=== PATIENT | male | born 1995 | race Hispanic/Latino ===

== ENCOUNTER 2023-10-07 00:53 | Emergency (ER) | payer SELFPAY ==
--- NOTE | ~2023-10-07 | XR_ITS ---
Lumbosacral Spine: AP and lateral views Clinical History: Pain Findings: The normal lordotic curve is maintained. The vertebral bodies and posterior elements are i ntact. The intervertebral disc spaces are preserved. The sacroiliac joints are normally outlined. Impression: No significant abnormality. Reviewed, dictated and finalized at [facility]. CE INVESTIGATOR Impression: No significant abnormality.
[2023-10-07 00:59] VITALS: BP 148/91; PULSE 88; RESP 14; TEMP 36.4; O2SAT 99
[2023-10-07] MEDS: CYCLOBENZAPRINE HCL 10 MG TABLET PO (02:57)
--- NOTE | 2023-10-07 03:21 | ED.GENADULT ---
HPI - General Adult General Chief complaint: Extremity Injury, Lower Stated complaint: left leg pain Time Seen by Provider: 10/07/23 02:30 History of Present Illness HPI narrative: Patient is a 28-year-old gentleman who presents emergency department with chief complaint of left back pain and pain radiating down the left leg. The patient states that several days ago he started having pain lumbar region that radiates down the left gluteal area down the back of his leg to his foot the patient denies footdrop denies saddle anesthesia denies bowel or bladder dysfunction. Related Data Allergies Allergy/AdvReac Type Severity Reaction Status Date / Time ibuprofen AdvReac Unknown Itching Verified 10/07/23 01:46 Review of Systems Review of Systems: A 10 system review of systems was completed on the patient and is negative except for what is stated in the HPI. Nursing and ancillary documentation was reviewed. Exam Narrative: GENERAL: Well-appearing, well-nourished, and in no acute distress. HEAD: Normocephalic, atraumatic. EYES: PERRLA and EOMI. ENT: Nares clear, no rhinorrhea or epistaxis. Mucous membranes moist. NECK: Supple. CHEST: Clear to auscultation. No respiratory distress. HEART: Regular rate and rhythm. No murmur heard. Normal peripheral pulses. ABDOMEN: Soft, nontender, nondistended, normal active bowel sounds. EXTREMITIES: Normal range of motion. No edema. Tenderness to palpation of the left SI joint and the left sciatic region SKIN: Warm, dry, no rash. NEURO: No focal deficits. Alert and oriented x3. PSYCH: Normal mood and affect. Course Vital Signs Vital signs: Vital Signs Temperature 36.4 C 10/07/23 00:59 Pulse Rate 88 10/07/23 00:59 Respiratory Rate 14 10/07/23 00:59 Blood Pressure 148/91 H 10/07/23 00:59 Pulse Oximetry 99 10/07/23 00:59 Oxygen Delivery Room Air 10/07/23 00:59 Temperature 36.4 C 10/07/23 00:59 Pulse Rate 88 10/07/23 00:59 Respiratory Rate 14 10/07/23 00:59 Blood Pressure 148/91 H 10/07/23 00:59 Pulse Oximetry 99 10/07/23 00:59 Oxygen Delivery Room Air 10/07/23 00:59 Medical Decision Making MDM Narrative Medical decision making narrative: Differential diagnosis includes sciatica, lumbar fracture, lumbar radiculopathy Plain film x-rays were obtained of the lumbar spine showed no evidence of fracture Vital Signs Vital Signs: Vital Signs Temperature 36.4 C 10/07/23 00:59 Pulse Rate 88 10/07/23 00:59 Respiratory Rate 14 10/07/23 00:59 Blood Pressure 148/91 H 10/07/23 00:59 Pulse Oximetry 99 10/07/23 00:59 Oxygen Delivery Room Air 10/07/23 00:59 Temperature 36.4 C 10/07/23 00:59 Pulse Rate 88 10/07/23 00:59 Respiratory Rate 14 10/07/23 00:59 Blood Pressure 148/91 H 10/07/23 00:59 Pulse Oximetry 99 10/07/23 00:59 Oxygen Delivery Room Air 10/07/23 00:59 Discharge Plan Discharge Clinical Impression: Sciatica Patient Disposition: Home, Self-Care Condition: Stable Instructions: Antibiotic Form, Sciatica (ED) Prescriptions: New lidocaine [Lidoderm] 5 % adhesive patch,medicated See Rx Instructions .ROUTE .COMPLEX Qty: 15 0RF Rx Instructions: leave on most painful area for up to 12 hrs cyclobenzaprine 10 mg tablet 10 mg PO TID PRN (Reason: muscle spasm) Qty: 21 0RF prednisone 20 mg tablet 40 mg PO DAILY 5 Days Qty: 10 0RF Follow-up/Referrals: Law Bo MD [Physician] - PHYSICIAN,GAS INSPECTOR [Primary Care Provider] - Time of Disposition: 04:04
[2023-10-07 04:19] VITALS: BP 139/88; PULSE 80; RESP 17; O2SAT 100
== END 2023-10-07 04:22 | disposition home or self-care (01) ==
PROVIDERS: Emergency Provider Emergency Medicine
DX: M54.42 Lumbago with sciatica, left side (principal)
CPT/HCPCS: 72100; 96372; 99283; A9270; J1100